=== PATIENT | female | born 1935 | race Caucasian/White ===

== ENCOUNTER → 2016-07-30 | Outpatient (CLI) | payer MEDICARE ==
[~2016-07-30] MED LIST: CYCL-36 PO; LEVO100T60 PO; LIPI10TA PO; LUTE6CAP7 PO; MEGA RED PO; OXYC1TAB92 PO; PRIN10TA PO; TAB-TAB PO; VITA400D PO
[2016-07-30 16:11] LABS: ALT (GPT) 26 U/L (10-53); ANION GAP 6 MEQ/L (5-15); AST (GOT) 14 U/L (15-37); BICARBONATE 26.6 MEQ/L (21.0-32.0); BLOOD UREA NITROGEN 19 MG/DL (7-18); CHLORIDE 107 MEQ/L (98-107); GLOMERULAR FILTRATION RATE 77 ML/MIN (>89); GLUCOSE,FASTING 80 MG/DL (74-99); SODIUM (NA) 140 MEQ/L (136-145)
[2016-07-30 16:12] LABS: AUTOMATED NEUTROPHIL # 4.2 TH/MM3 (1.8-7.7); BASOPHIL # 0.1 TH/MM3 (0-0.2); BASOPHIL % 1.4 % (0.0-2.0); EOSINOPHIL # 0.1 TH/MM3 (0-0.4); EOSINOPHIL % 2.2 % (0.0-4.0); HEMATOCRIT 37.9 % (35.0-46.0); HEMO FLAGS DIFF FINAL; LYMPH % 22.5 % (9.0-44.0); LYMPHOCYTE # 1.4 TH/MM3 (1.0-4.8); MEAN CELL VOLUME 93.9 FL (80.0-100.0); MEAN CORPUSCULAR HEMOGLOBIN 32.1 PG (27.0-34.0); MEAN CORPUSCULAR HGB CONC 34.2 % (32.0-36.0); MONO % 8.5 % (0.0-8.0); NEUT % 65.4 % (16.0-70.0); PLATELET COUNT 314 TH/MM3 (150-450); RED BLOOD COUNT 4.03 MIL/MM3 (4.00-5.30); RED CELL DISTRIBUTION WIDTH 12.9 % (11.6-17.2); WHITE BLOOD COUNT 6.4 TH/MM3 (4.0-11.0)
[2016-07-30 16:19] LABS: ALKALINE PHOSPHATASE 53 U/L (45-117); FREE T4 1.23 NG/DL (0.76-1.46); HDL CHOLESTEROL 56.3 MG/DL (40.0-60.0); LDL CHOLESTEROL 71 MG/DL (0-99); TOTAL BILIRUBIN ADULT 0.4 MG/DL (0.2-1.0)
[2016-07-30 16:20] LABS: BLOOD, URINE NEG (NEG); GLUCOSE,URINE NEG (NEG); KETONE, URINE NEG (NEG); MUCUS URINE FEW /lpf (OCC); NITRITE,URINE NEG (NEG); SQUAMOUS EPITHELIAL CELL URINE <1 /hpf (0-5); URINE COLOR YELLOW (YELLW/STRAW)
== END ==
LOC: PLAB 11:50
PROVIDERS: ATTEND Family Medicine Adolescent Medicine
DX: B02.29 Other postherpetic nervous system involvement (principal); E03.9 Hypothyroidism, unspecified; I12.9 Hypertensive chronic kidney disease with stage 1 through stage 4 chronic kidney disease, or unspecified chronic kidney disease; N18.2 Chronic kidney disease, stage 2 (mild); M12.9 Arthropathy, unspecified; M48.06 Spinal stenosis, lumbar region; M51.9 Unspecified thoracic, thoracolumbar and lumbosacral intervertebral disc disorder; M81.0 Age-related osteoporosis without current pathological fracture; R52 Pain, unspecified; E78.5 Hyperlipidemia, unspecified; G45.3 Amaurosis fugax; E03.1 Congenital hypothyroidism without goiter; G47.00 Insomnia, unspecified; Z79.899 Other long term (current) drug therapy
CPT/HCPCS: 36415; 80053; 80061; 81001; 82550; 84439; 84443; 85025

== ENCOUNTER 2017-03-17 15:11 | Emergency (ER) | payer OTHER, MEDICARE ==
[~2017-03-17] VITALS: Ht 160 cm; Wt 65.0 kg
[2017-03-17 15:20] VITALS: BP 147/65; PULSE 70; RESP 18; TEMP 99; O2SAT 97
[2017-03-17] MEDS ORDERED: LIDOCAINE HCL 1% 50 ML VIAL INFIL ONE (15:45)
[2017-03-17] MEDS ORDERED: MORPHINE SULFATE 4 MG/ML INJ IV PUSH ONE (15:45)
[2017-03-17] MEDS ORDERED: ONDANSETRON HCL 4 MG/2 ML VIAL IV PUSH ONE (15:45)
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
[2017-03-17 16:14] LABS: AUTOMATED NEUTROPHIL # 5.3 TH/MM3 (1.8-7.7); BASOPHIL # 0.1 TH/MM3 (0-0.2); EOSINOPHIL # 0.3 TH/MM3 (0-0.4); EOSINOPHIL % 3.3 % (0.0-4.0); HEMATOCRIT 38.6 % (35.0-46.0); HEMO FLAGS DIFF FINAL; LYMPH % 24.7 % (9.0-44.0); LYMPHOCYTE # 2.1 TH/MM3 (1.0-4.8); MEAN CELL VOLUME 92.3 FL (80.0-100.0); MEAN CORPUSCULAR HGB CONC 33.6 % (32.0-36.0); PLATELET COUNT 272 TH/MM3 (150-450); RED BLOOD COUNT 4.18 MIL/MM3 (4.00-5.30); RED CELL DISTRIBUTION WIDTH 12.9 % (11.6-17.2); WHITE BLOOD COUNT 8.3 TH/MM3 (4.0-11.0)
[2017-03-17 16:24] LABS: APTT (PATIENT) 20.8 SEC (24.3-30.1); PROTHROMBIN TIME - PATIENT 10.5 SEC (9.8-11.6)
[2017-03-17 16:31] LABS: BICARBONATE 22.4 MEQ/L (21.0-32.0); POTASSIUM 4.2 MEQ/L (3.5-5.1)
[2017-03-17] MEDS ORDERED: IOHEXOL 350 MG/ML 10 ML VIAL (for RAD DIAG) IVCONTRAST ONE (19:10)
[2017-03-17 19:14] VITALS: BP 170/75; PULSE 80; RESP 18; O2SAT 83
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
[2017-03-17] MEDS ORDERED: CEPH-460 PO (19:39)
[2017-03-17] MEDS ORDERED: TRAM50TA PO (19:39)
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
== END 2017-03-17 20:19 | disposition home or self-care (01) ==
LOC: NEPD 15:11
DX: S81.012A Laceration without foreign body, left knee, initial encounter (principal); M54.5 Low back pain; I10 Essential (primary) hypertension; V49.49XA Driver injured in collision with other motor vehicles in traffic accident, initial encounter; Y92.410 Unspecified street and highway as the place of occurrence of the external cause; Z72.0 Tobacco use
CPT/HCPCS: 12002; 71020; 72125; 72131; 73564; 74177; 80048; 85025; 85610; 85730; 96374; 96375; 99285; J2270; J2405; Q9967

== ENCOUNTER → 2017-05-11 | Outpatient (CLI) | payer MEDICARE ==
[~2017-05-11] MED LIST changes: +CEPH-460 PO; +TRAM50TA PO
[2017-05-11 13:10] LABS: BASOPHIL # 0.1 TH/MM3 (0-0.2); BLOOD, URINE NEG (NEG); EOSINOPHIL # 0.2 TH/MM3 (0-0.4); EOSINOPHIL % 2.5 % (0.0-4.0); GLUCOSE,URINE NEG (NEG); HEMATOCRIT 39.4 % (35.0-46.0); HEMO FLAGS DIFF FINAL; KETONE, URINE NEG (NEG); LYMPH % 21.6 % (9.0-44.0); LYMPHOCYTE # 1.6 TH/MM3 (1.0-4.8); MEAN CELL VOLUME 91.8 FL (80.0-100.0); MEAN CORPUSCULAR HEMOGLOBIN 31.7 PG (27.0-34.0); MEAN CORPUSCULAR HGB CONC 34.5 % (32.0-36.0); MONO % 8.4 % (0.0-8.0); NEUT % 66.5 % (16.0-70.0); NITRITE,URINE NEG (NEG); PH, URINE 7.5 (5.0-8.5); PLATELET COUNT 286 TH/MM3 (150-450); RED CELL DISTRIBUTION WIDTH 13.2 % (11.6-17.2); URINE COLOR YELLOW (YELLW/STRAW); WHITE BLOOD COUNT 7.4 TH/MM3 (4.0-11.0)
[2017-05-11 13:20] LABS: ANION GAP 5 MEQ/L (5-15); AST (GOT) 21 U/L (15-37); BICARBONATE 28.1 MEQ/L (21.0-32.0); BLOOD UREA NITROGEN 12 MG/DL (7-18); CHLORIDE 109 MEQ/L (98-107); GLOMERULAR FILTRATION RATE 81 ML/MIN (>89); GLUCOSE,FASTING 95 MG/DL (74-99); POTASSIUM 4.3 MEQ/L (3.5-5.1); SODIUM (NA) 142 MEQ/L (136-145)
[2017-05-11 13:24] LABS: ALKALINE PHOSPHATASE 73 U/L (45-117); ALT (GPT) 24 U/L (10-53); CREATINE KINASE 83 U/L (26-192); HDL CHOLESTEROL 74.3 MG/DL (40.0-60.0); LDL CHOLESTEROL 49 MG/DL (0-99); TOTAL BILIRUBIN ADULT 0.5 MG/DL (0.2-1.0)
[2017-05-11 13:29] LABS: FREE T4 0.87 NG/DL (0.76-1.46)
== END ==
LOC: PLAB 09:27
PROVIDERS: ATTEND Family Medicine Adolescent Medicine
DX: I49.1 Atrial premature depolarization (principal); B02.29 Other postherpetic nervous system involvement; G47.00 Insomnia, unspecified; M12.9 Arthropathy, unspecified; M51.9 Unspecified thoracic, thoracolumbar and lumbosacral intervertebral disc disorder; R52 Pain, unspecified; I65.29 Occlusion and stenosis of unspecified carotid artery; E78.5 Hyperlipidemia, unspecified; I10 Essential (primary) hypertension; E03.1 Congenital hypothyroidism without goiter; Z79.01 Long term (current) use of anticoagulants; Z79.1 Long term (current) use of non-steroidal anti-inflammatories (NSAID)
CPT/HCPCS: 36415; 80053; 80061; 81001; 82550; 84439; 84443; 85025

== ENCOUNTER → 2017-05-18 | Outpatient (CLI) | payer MEDICARE | LOC: PLAB 12:14 | PROVIDERS: ATTEND Family Medicine Adolescent Medicine | DX: E03.9 Hypothyroidism, unspecified (principal) ==

== ENCOUNTER 2017-10-03 12:00 | Inpatient (IN) | payer MEDICARE ==
[~2017-10-03] VITALS: Ht 157.5 cm; Wt 64.0 kg
[2017-10-03] VITALS (7 sets, daily range): BP systolic 124–161; BP diastolic 60–85; PULSE 73–96; RESP 17–20; TEMP 97.8–98.7; O2SAT 92–98
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
[2017-10-03] MEDS ORDERED: LISI-519 PO (12:54)
[2017-10-03] MEDS ORDERED: LIPI10TA PO (12:54)
[2017-10-03] MEDS ORDERED: LUTE20CA PO (12:54)
[2017-10-03] MEDS ORDERED: LEVO112T2 PO (12:54)
[2017-10-03] MEDS ORDERED: VITATAB56 PO (12:54)
[2017-10-03] MEDS ORDERED: OXYC-392 PO (12:54)
--- NOTE | 2017-10-03 12:56 | RADRPT ---
EXAM DATE/TIME: 10/03/2017 12:35 [facility] COMPARISON: CT ABDOMEN & PELVIS W CONTRAST, March 17, 2017, 18:53. HIP RIGHT (AP&LAT 2/3VWS) W AP PELVIS, Au 2015, 15:28. INDICATIONS : Right hip area pain after fall 1 hour ago. unable to straighten leg out fully MEDICAL HISTORY : None. SURGICAL HISTORY : None. ENCOUNTER: Initial ACUITY: 1 day PAIN SCORE: 10/10 LOCATION: Right hip area FINDINGS: There is a nondisplaced comminuted fracture involving the right femoral neck. The femoral head mainta ins normal contour and is seen within the right acetabulum. Osseous fragment identified adjacent to t he anterior-inferior iliac spine is stable in position from prior exam. Stable posterior fusion hardw are in the lower lumbar spine. The bones appear mildly osteopenic. CONCLUSION: Nondisplaced fracture of the right femoral neck.. Cori Stanley MD on October 03, 2017 at 12:52 Board Certified Radiologist. This report was verified electronically.
[2017-10-03] MEDS ORDERED: SODIUM CHLORIDE 0.9% FLUSH 10 ML FLUSH IVF PRN (13:45)
[2017-10-03] MEDS ORDERED: LACTULOSE SYRUP 20 GM/30 ML CUP PO PRN (14:15)
[2017-10-03] MEDS ORDERED: BISACODYL 10 MG SUPP RECTAL PRN (14:15)
[2017-10-03] MEDS ORDERED: SODIUM CHLORIDE 0.9% FLUSH 10 ML FLUSH IV FLUSH PRN (14:15)
[2017-10-03] MEDS ORDERED: MAGNESIUM HYDROXIDE SUSP 30 ML CUP PO PRN (14:15)
[2017-10-03] MEDS ORDERED: SENNOSIDES 8.6 MG TAB PO PRN (14:15)
[2017-10-03] MEDS ORDERED: NALOXONE HCL 0.4 MG/ML AMP IV PUSH PRN (14:15)
[2017-10-03 14:39] LABS: AUTOMATED NEUTROPHIL # 8.4 TH/MM3 (1.8-7.7); BASOPHIL # 0.1 TH/MM3 (0-0.2); BASOPHIL % 1.1 % (0.0-2.0); EOSINOPHIL # 0.2 TH/MM3 (0-0.4); EOSINOPHIL % 1.9 % (0.0-4.0); HEMATOCRIT 39.8 % (35.0-46.0); HEMOGLOBIN 13.5 GM/DL (11.6-15.3); LYMPHOCYTE # 1.5 TH/MM3 (1.0-4.8); MEAN CORPUSCULAR HEMOGLOBIN 30.9 PG (27.0-34.0); MEAN CORPUSCULAR HGB CONC 33.9 % (32.0-36.0); MEAN PLATELET VOLUME 7.7 FL (7.0-11.0); MONO % 4.7 % (0.0-8.0); MONOCYTE # 0.5 TH/MM3 (0-0.9); NEUT % 78.3 % (16.0-70.0); PLATELET COUNT 261 TH/MM3 (150-450); RED BLOOD COUNT 4.38 MIL/MM3 (4.00-5.30); RED CELL DISTRIBUTION WIDTH 12.8 % (11.6-17.2); WHITE BLOOD COUNT 10.7 TH/MM3 (4.0-11.0)
[2017-10-03 14:47] LABS: CHLORIDE 108 MEQ/L (98-107); SODIUM (NA) 139 MEQ/L (136-145)
[2017-10-03 14:50] LABS: CALCIUM 8.7 MG/DL (8.5-10.1)
[2017-10-03 14:51] LABS: ALBUMIN 3.4 GM/DL (3.4-5.0); BICARBONATE 22.9 MEQ/L (21.0-32.0); BLOOD UREA NITROGEN 22 MG/DL (7-18); GLUCOSE,RANDOM 88 MG/DL (74-106); MAGNESIUM 2.4 MG/DL (1.5-2.5)
[2017-10-03 14:52] LABS: PROTHROMBIN TIME - PATIENT 10.1 SEC (9.8-11.6)
[2017-10-03 14:54] LABS: ALT (GPT) 31 U/L (10-53); AST (GOT) 23 U/L (15-37); CREATININE 0.75 MG/DL (0.50-1.00); GLOMERULAR FILTRATION RATE 74 ML/MIN (>89)
[2017-10-03 14:56] LABS: TOTAL BILIRUBIN ADULT 0.3 MG/DL (0.2-1.0); TOTAL PROTEIN 6.4 GM/DL (6.4-8.2)
[2017-10-03 14:57] LABS: ALKALINE PHOSPHATASE 68 U/L (45-117)
--- NOTE | 2017-10-03 15:33 | RADRPT ---
EXAM DATE/TIME: 10/03/2017 14:32 [facility] COMPARISON: No previous studies available for comparison. INDICATIONS : Fall today, right hip fracture MEDICAL HISTORY : None. SURGICAL HISTORY : None. ENCOUNTER: Initial ACUITY: 1 day PAIN SCORE: 0/10 LOCATION: Bilateral chest FINDINGS: A single view of the chest demonstrates cardiomegaly. Mild basilar atelectasis. Mildly tortuous aorta . No pneumothorax. Previous fixation lumbar spine. CONCLUSION: 1. Minimal basilar atelectasis. Julian Salguero MD on October 03, 2017 at 15:30 Board Certified Radiologist. This report was verified electronically.
[2017-10-03] MEDS: SODIUM CHLOR 0.9% 1000 ML INJ 1,000 ML IV SCH (15:56)
[2017-10-03] MEDS ORDERED: oxyCODONE/ACETAMINOPHEN 5 MG/325 MG TAB PO ONE (17:30)
[2017-10-03] MEDS ORDERED: CHLORHEXIDINE GLUCONATE 2 % 1 PACK (2 CLOTHS) TOPICAL PRN (21:00)
[2017-10-03] MEDS ORDERED: MORPHINE SULFATE 2 MG/ML SYRINGE IM PRN (21:00)
[2017-10-03] MEDS ORDERED: POVIDONE IODINE 5% (ANTISEPSIS KIT) 4 APPLICATIONS EACH NARE PRN (21:00)
[2017-10-03] MEDS ORDERED: LACTATED RINGER'S 1000 ML IV PRN (21:00)
[2017-10-03] MEDS: SODIUM CHLORIDE 0.9% FLUSH 10 ML FLUSH IV FLUSH SCH (21:00)
[2017-10-03] MEDS ORDERED: SODIUM CHLORID 0.9% 500 ML IV PRN (21:00)
[2017-10-03] MEDS: ATORVASTATIN 10 MG TAB PO SCH (21:08)
[2017-10-03] MEDS: DOCUSATE SODIUM 50 MG/SENNA 8.6 MG TAB PO SCH (21:08)
--- NOTE | 2017-10-03 21:08 | HHI.HP ---
[facility] Vanessa Pérez D.O. Admission Diagnosis Right Hip Fracture. Diagnoses: (1) Hip fracture, right Chief Complaint: Left hip and groin pain following fall Travel History International Travel<30 Days: No Contact w/Intl Traveler <30 Da: No Traveled to Known Affected Are: No History of Present Illness Ms. Corbett is an 82 y/o female with a history of CVA, hypertension, arthritis , and hypothyroidism who presented to the emergency room in [place] on 2017 after a trip and fall [facility] [employer] resulting in severe right hip and right groin pain. Right hip x-ray revealed nondisplaced fracture of right femoral neck and patient was transferred to [facility] for surgical repair. The patient is seen in her hospital room. She reports 7 out of 10 pain in her right hip following a mechanical fall at [employer]. She states that after the fall , she was unable to get back up. She denied hitting her head or having any chest pain or shortness of breath prior to the fall. She states she tripped on the carpet at the [employer]. She reports inadequate pain relief with current pain medication regimen. She denies any recent fever, chills, or illness. Review of Systems Except as stated in HPI: all other systems reviewed are Neg Past Family Social History Past Medical History Hypothyroidism Hypertension - controlled by medication Arthritis Basal cell skin cancer Chronic lumbar back pain L4-L5 DDD with herniated disc Denies diabetes, coronary artery disease, irregular heart rhythm, COPD or emphysema, liver disease, kidney disease, DVT, PE, CVA, seizures, or cancer. . Past Surgical History Thyroid biopsy Hysterectomy Basal cell skin cancer removal from the left inner eye - Dr. Aranda Lumbar surgery with kell placement . Reported Medications Reported Meds & Active Scripts Active Reported Oxycodone (Oxycodone HCl) 5 Mg Tab 5 Mg PO Q6HR Lisinopril 5 Mg Tab 5 Mg PO DAILY Levothyroxine (Levothyroxine Sodium) 112 Mcg Tab 112 Mcg PO DAILY Lutein 20 Mg Cap 20 Mg PO DAILY Vitamin D-400 (Cholecalciferol) 400 Unit Tab 400 Units PO DAILY Lipitor (Atorvastatin Calcium) 10 Mg Tab 10 Mg PO HS . Allergies: Coded Allergies: ipratropium (Unverified Allergy, Severe, 10/03/17) DIZZINESS,BLURRED VISION, NAUSEA, VOMITTING Family History Significant for heart disease and diabetes Sister with breast cancer . 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 Physical Exam Vital Signs Vital Signs Date Time Temp Pulse Resp B/P (MAP) Pulse Ox O2 Delivery O2 Flow Rate FiO2 10/03/17 19:43 93 18 150/80 (103) 94 10/03/17 19:00 18 10/03/17 19:00 94 18 144/81 (102) 97 Room Air 10/03/17 15:11 73 20 161/63 (95) 97 Room Air 10/03/17 15:10 97 Room Air 10/03/17 15:10 97 10/03/17 12:08 98.6 80 18 124/60 (81) Physical Exam CONSTITUTIONAL: This is a well-nourished elderly female patient, in no apparent distress. INTEGUMENTARY: No rashes, ecchymoses or lesions. Cool and dry. HEAD: Atraumatic. Normocephalic. EYES: No scleral icterus. No injection or drainage. ENT: Nose without bleeding, purulent drainage. NECK: Trachea midline. No JVD or lymphadenopathy. CARDIOVASCULAR: Regular rate and rhythm without murmurs, gallops, or rubs. RESPIRATORY: Clear to auscultation. Breath sounds equal bilaterally. No wheezes , rales, or rhonchi. GASTROINTESTINAL: Abdomen soft, non-tender, nondistended. No guarding. MUSCULOSKELETAL: Extremities without clubbing, cyanosis. No calf tenderness. Right hip pain with movement. NEUROLOGICAL: Awake and alert. Motor and sensory grossly within normal limits. Normal speech. . Laboratory Laboratory Tests Test 10/03/17 14:30 White Blood Count 10.7 Red Blood Count 4.38 Hemoglobin 13.5 Hematocrit 39.8 Mean Corpuscular Volume 91.0 Mean Corpuscular Hemoglobin 30.9 Mean Corpuscular Hemoglobin Concent 33.9 Red Cell Distribution Width 12.8 Platelet Count 261 Mean Platelet Volume 7.7 Neutrophils (%) (Auto) 78.3 Lymphocytes (%) (Auto) 14.0 Monocytes (%) (Auto) 4.7 Eosinophils (%) (Auto) 1.9 Basophils (%) (Auto) 1.1 Neutrophils # (Auto) 8.4 Lymphocytes # (Auto) 1.5 Monocytes # (Auto) 0.5 Eosinophils # (Auto) 0.2 Basophils # (Auto) 0.1 CBC Comment DIFF FINAL Differential Comment Prothrombin Time 10.1 Prothromb Time International Ratio 1.0 Activated Partial Thromboplast Time 22.6 Blood Urea Nitrogen 22 Creatinine 0.75 Random Glucose 88 Total Protein 6.4 Albumin 3.4 Calcium Level 8.7 Magnesium Level 2.4 Alkaline Phosphatase 68 Aspartate Amino Transf (AST/SGOT) 23 Alanine Aminotransferase (ALT/SGPT) 31 Total Bilirubin 0.3 Sodium Level 139 Potassium Level 3.9 Chloride Level 108 Carbon Dioxide Level 22.9 Anion Gap 8 Estimat Glomerular Filtration Rate 74 Result Diagram: 10/03/17 1430 10/03/17 1430 Imaging Last Impressions Chest X-Ray 10/03/17 1332 Signed Impressions: Service Date/Time: Tuesday, October 03, 2017 14:32 - CONCLUSION: 1. Minimal basilar atelectasis. Julian Salguero MD Hip and Pelvis X-Ray 10/03/17 0000 Signed Impressions: Service Date/Time: Tuesday, October 03, 2017 12:35 - CONCLUSION: Nondisplaced fracture of the right femoral neck.. Cori Stanley MD . Caprini VTE Risk Assessment Caprini VTE Risk Assessment: Mod/High Risk (score >= 2) Caprini Risk Assessment Model Point Value = 1 Point Value = 2 Point Value = 3 Point Value = 5 Age 41-60 Minor surgery BMI > 25 kg/m2 Swollen legs Varicose veins or History of unexplained or recurrent spontaneous Oral contraceptives or hormone replacement Sepsis (< 1 month) Serious lung disease, including pneumonia (< 1 month) Abnormal pulmonary function Acute myocardial infarction Congestive heart failure (< 1 month) History of inflammatory bowel disease Medical patient at bed rest Age 61-74 Arthroscopic surgery Major open surgery (> 45 min) Laparoscopic surgery (> 45 min) Malignancy Confined to bed (> 72 hours) Immobilizing plaster cast Central venous access Age >= 75 History of VTE Family history of VTE Factor V Leiden Prothrombin [id number] Lupus anticoagulant Anticardiolipin antibodies Elevated serum homocysteine Heparin-induced thrombocytopenia Other congenital or acquired thrombophilia Stroke (< 1 month) Elective arthroplasty Hip, pelvis, or leg fracture Acute spinal cord injury (< 1 month) Prophylaxis Regimen Total Risk Factor Score Risk Level Prophylaxis Regimen 0-1 Low Early ambulation 2 Moderate Order ONE of the following: *Sequential Compression Device (SCD) *Heparin 5000 units SQ BID 3-4 Higher Order ONE of the following medications: *Heparin 5000 units SQ TID *Enoxaparin/Lovenox 40 mg SQ daily (WT < 150 kg, CrCl > 30 mL/min) *Enoxaparin/Lovenox 30 mg SQ daily (WT < 150 kg, CrCl > 10-29 mL/min) *Enoxaparin/Lovenox 30 mg SQ BID (WT < 150 kg, CrCl > 30 mL/min) AND/OR *Sequential Compression Device (SCD) 5 or more Highest Order ONE of the following medications: *Heparin 5000 units SQ TID (Preferred with Epidurals) *Enoxaparin/Lovenox 40 mg SQ daily (WT < 150 kg, CrCl > 30 mL/min) *Enoxaparin/Lovenox 30 mg SQ daily (WT < 150 kg, CrCl > 10-29 mL/min) *Enoxaparin/Lovenox 30 mg SQ BID (WT < 150 kg, CrCl > 30 mL/min) AND *Sequential Compression Device (SCD) Assessment and Plan Problem List: (1) Hypertension ICD Code: I10 - Essential (primary) hypertension Status: Chronic (2) Hypothyroidism ICD Code: E03.9 - Hypothyroidism, unspecified Status: Chronic (3) Hip fracture, right ICD Code: S72.001A - Fracture of unspecified part of neck of right femur, initial encounter for closed fracture Assessment and Plan Ms. Corbett is an 82 y/o female with a history of CVA, hypertension, arthritis , and hypothyroidism who presented to the emergency room in [place] on 2017 after a trip and fall at [employer] resulting in severe right hip and right groin pain. Right hip x-ray revealed nondisplaced fracture of right femoral neck and patient was transferred to [facility] for surgical repair. Right hip fracture -Right hip x-ray revealed nondisplaced fracture of right femoral neck -Case was discussed between ER physician and Dr. Carrillo, orthopedic surgeon, and he will consult on the case - appreciate his assistance -NPO after midnight -Oxycodone 5-10 mg p.o. every 4 hours as needed pain with IV morphine for breakthrough pain Hypertension -Some elevations noted with systolic from 140s-160s -likely secondary to pain -Maintain pain control with analgesia as described above -Resume home lisinopril -Monitor trends in blood pressure readings and adjust treatments as indicated Hypothyroidism -Continue home Synthroid DVT prophylaxis -SCDs/TEDs Discussed Condition With Dr. Goodman . Physician Certification 2 Midnight Certification Type: Admission for Inpatient Services Order for Inpatient Services The services are ordered in accordance with Medicare regulations or non- Medicare payer requirements, as applicable. In the case of services not specified as inpatient-only, they are appropriately provided as inpatient services in accordance with the 2-midnight benchmark. Estimated LOS (days): 3 days is the estimated time the patient will need to remain in the hospital, assuming treatment plan goals are met and no additional complications. Post-Hospital Plan: Not yet determined Pam Camacho Oct 03, 2017 21:08
[2017-10-04] MEDS: SODIUM CHLOR 0.9% 1000 ML INJ 1,000 ML IV SCH ×2 (01:05→16:46)
[2017-10-04] MEDS ORDERED: MORPHINE SULFATE 2 MG/ML SYRINGE IV PUSH PRN (03:00)
[2017-10-04 04:50] VITALS: BP 119/62; PULSE 84; RESP 18; TEMP 98.1; O2SAT 92
[2017-10-04] MEDS: LEVOTHYROXINE SODIUM 112 MCG TAB PO SCH (05:53)
--- NOTE | 2017-10-04 06:37 | PD.ORT.PN ---
Subjective Subjective Remarks Previous spinal surgery approximately 2 years ago. She has been working hard on her gait training. She was at [employer] when she fell yesterday. She had immediate pain to her right hip and was unable to ambulate. Objective Vitals Vital Signs Date Time Temp Pulse Resp B/P (MAP) Pulse Ox O2 Delivery O2 Flow Rate FiO2 10/04/17 04:50 98.1 84 18 119/62 (81) 92 10/03/17 23:19 98.7 94 18 129/61 (83) 92 10/03/17 21:02 97.8 96 18 140/85 (103) 95 10/03/17 19:43 93 18 150/80 (103) 94 10/03/17 19:00 18 10/03/17 19:00 94 18 144/81 (102) 97 Room Air 10/03/17 15:11 73 20 161/63 (95) 97 Room Air 10/03/17 15:10 97 Room Air 10/03/17 15:10 97 10/03/17 12:08 98.6 80 18 124/60 (81) I/O 10/03/17 10/03/17 10/03/17 10/04/17 10/04/17 10/04/17 07:00 15:00 23:00 07:00 15:00 23:00 Intake Total 360 ml Balance 360 ml Intake Oral 360 ml # Voids 3 # Bowel Movements 0 Result Diagram: 10/03/17 1430 10/03/17 1430 Other Results Laboratory Tests Test 10/03/17 14:30 Prothromb Time International Ratio 1.0 RATIO Prothrombin Time 10.1 SEC (9.8-11.6) Imaging Last 24 hours Impressions Chest X-Ray 10/03/17 1332 Signed Impressions: Service Date/Time: Tuesday, October 03, 2017 14:32 - CONCLUSION: 1. Minimal basilar atelectasis. Julian Salguero MD Objective Remarks Bilateral upper extremities: Full range of motion neurovascularly intact Left lower extremity: Full range of motion and neurovascularly intact Right lower extremity: Pain to palpation of hip. Mild tenderness with range of motion of hip. No pain with palpation or movement of knee or ankle. Distally intact sensation with good capillary refills. Active dorsiflexion plantar flexion foot Assessment & Plan Assessment and Plan Right valgus impacted femoral neck fracture Nothing by mouth Surgery this morning for planned percutaneous screw fixation of the right femoral neck fracture. If the fractures displaced surgery may be necessary to be converted to a right hip hemiarthroplasty. Sign consents Alfie Mayes Jr. Oct 04, 2017 06:36
[2017-10-04] MEDS ORDERED: ceFAZolin INJ 1,000 MG VIAL ONE (06:53)
[2017-10-04] MEDS ORDERED: VANCOMYCIN HCL 1000 MG VIAL ONE (06:53)
[2017-10-04] MEDS ORDERED: BUPIVACAINE/EPINEPHRINE 0.25% 50 ML VIAL ONE (06:54)
[2017-10-04] MEDS ORDERED: GENTAMICIN SULFATE 80 MG/2 ML VIAL ONE (06:54)
[2017-10-04] MEDS ORDERED: SODIUM CHLOR 0.9% 250 ML INJ 250 ML ONE (06:54)
[2017-10-04] MEDS ORDERED: SUGAMMADEX SODIUM 200 MG/2 ML VIAL IV PUSH ONE (08:05)
--- NOTE | 2017-10-04 08:10 | PD.OP ---
cc: Carlyle Fernandez MD Operative Report Date of Surgery: Oct 04, 2017 Preoperative Diagnosis: Impacted right femoral neck fracture Postoperative Diagnosis: Procedure: Right hip pinning Anesthesia: General Surgeon: Carlyle Fernandez [employer] Decorator(s): ALFRED Castaneda PA-C Operation and Findings: Implants used: ITS Plan of activity: TTWB Patient was seen and evaluated preoperatively. The patient has significant hip pain from impacted femoral neck fracture. The risk and benefits of surgery were discussed in depth with the patient to include bleeding infection nonunion malunion, avascular necrosis and need for hip replacement painful hardware as well as medical competitions including but not stroke heart attack and . Informed consent was obtained. Operative site was marked. Patient was brought to the operating room and placed on fracture table. IV sedation was administered by anesthesiologist. Timeout procedure was performed. Hip and leg were prepped with alcohol followed by Hibiclens and draped in the usual sterile fashion. IV antibiotics were given prior to incision. Procedure began with evaluation of fracture under fluoroscopy. The fracture was impacted and an excellent alignment. A three cm incision was along the lateral aspect of the proximal femur . Subcutaneous tissue was dissected bluntly. Three guidepins were placed through the lateral cortex of the proximal femur. Guide pins were placed in an inverted triangle position. Guide pins were advanced across the fracture site into the femoral head. Fluoroscopy confirmed appropriate guidepin placement. The screw lengths were measured. A cannulated drill was placed over each of the guide pins. Appropriate length ITS cannulated screws were placed over the guidepins. Good compression was applied across the fracture. Final fluoroscopy revealed well aligned fracture with well-placed hardware. Incision was closed with 3-0 Vicryl and artemio. Sterile dressings were applied. Patient was awakened and transferred to recovery room. Carlyle Fernandez MD Oct 04, 2017 08:10
[2017-10-04] MEDS ORDERED: ERGOCALCIFEROL (VIT D2) 50,000 UNIT CAP PO ONE (08:15)
[2017-10-04] MEDS ORDERED: Post-op Orders (for Pharmacy) XX ONE (08:15)
[2017-10-04] MEDS ORDERED: DO NOT ADM ANY ANTICOAGULANT DRUGS PRN (08:17)
[2017-10-04] MEDS ORDERED: *morphine SULFATE 4 MG/ML PERIprocedure ONLY ONE ×4 (08:20→08:57)
--- NOTE | 2017-10-04 08:37 | MB ---
cc: Carlyle Gonsalez MD DATE: 10/04/2017 REASON FOR CONSULTATION: Right femoral neck fracture CONSULTING PHYSICIAN: Dr. Ariana Hobbs. HISTORY OF PRESENT ILLNESS: Janet is an 82-year-old female who had a fall. She was at [employer]. She states that her shoe caught on the carpet causing her to fall. She describes a mechanical fall. She denies any dizziness, syncope or loss of consciousness. She presented to the Emergency Room where x-rays revealed a right hip fracture. She is currently awake and alert. Her only complaint is her right hip. Pain is worse with movement and is improved with rest. PAST MEDICAL HISTORY: Illnesses: Hypothyroidism, hypertension, arthritis, basal cell skin cancer, chronic back pain and degenerative disc disease. PAST SURGICAL HISTORY: Include a thyroid biopsy, hysterectomy, skin cancer excision and lumbar fusion. MEDICATIONS: Include: Oxycodone, lisinopril, levothyroxine, vitamin D and Lipitor. ALLERGIES: IPRATROPIUM. FAMILY HISTORY: Positive for heart disease and diabetes. She has a sister with breast cancer. SOCIAL HISTORY: The patient smokes 1/3 pack a day. She drinks alcohol occasionally. She denies drug use. 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 REVIEW OF SYSTEMS: The patient denies headache, visual changes, neck pain, chest pain, shortness of breath, abdominal pain, nausea, vomiting, recent weight loss, fever, chills, numbness or tingling of the extremities. She complains of right hip pain. The pain is worse with movement. LABORATORY DATA: White blood cell count is 10.7, hematocrit is 39.8, platelet count is 261. INR is 1.0. BUN is 22, creatinine 0.75. IMAGING: X-rays of the right hip were reviewed. X-rays reveal an impacted right femoral neck fracture. PHYSICAL EXAMINATION: GENERAL: The patient is a well-developed, well-nourished, 82-year-old female. She is awake and alert. She is alert and oriented x 3. She is in no acute distress. VITAL SIGNS: Temperature 98.1, pulse 84, respirations 18, blood pressure is 119/62, O2 saturation 90% on room air. HEAD: The patient is normocephalic. EYES: Pupils are equal. NECK: Soft and nontender. The trachea is in the midline. ABDOMEN: Soft, nontender, nondistended. EXTREMITIES: Examination of bilateral upper extremities reveals no pain with shoulder, elbow or wrist motion. She has intact sensation in all fingers. She has good cap refill at fingers. Skin is intact. Radial pulses are palpable. Examination of the left leg reveals no pain with hip, knee or ankle motion. Skin is intact. Dorsalis pedis pulses palpable. Sensation is intact. Examination of the right leg revealed pain with any hip motion. She is tender to palpation around the proximal femur. She has no tenderness around her knee, tibia or ankle. Skin is intact. Dorsalis pedis pulses palpable. Calf and thigh compartments are soft. Dorsalis pedis pulses palpable. IMPRESSION: 1. Hypertension. 2. Hypothyroidism. 3. Degenerative disk disease of the lumbar spine. 4. Impacted right femoral neck fracture. PLAN: The treatment options were discussed with the patient. I discussed possible hip pinning versus possible hemiarthroplasty. At this point, the fracture appears to be stable and impacted. I will plan on right hip pinning. If fracture has displaced by the time of surgery, then I would recommend right hip hemiarthroplasty. Risks of surgery include bleeding, infection, injuries to arteries, nerves and blood vessels, nonunion, malunion, painful hardware, avascular necrosis, need for hip replacement as well as medical complications associated with anesthesia. All questions were answered. I will plan on surgery today. A mid-level provider in my office, nurse practitioner or PA, may see this patient on a follow-up basis and continue to implement the objective of this plan including: Starting or adjusting medications, injections of muscle, tendon, bursa or joints, cast application, orthotic or brace application, physical therapy, further radiographic studies including x-ray, MRI, CT, ultrasounds or bone scan, vascular studies, neurologic studies, or other specialist consultations, and proceeding with surgical management as appropriate. MD FELTON Rose/SOILA , 08:18 AM , 08:36 AM
[2017-10-04] MEDS ORDERED: ACETAMINOPHEN 1000 MG/100 ML 100 ML IV ONE ×2 (08:44→09:00)
[2017-10-04] MEDS ORDERED: XARE10TA PO (08:45)
[2017-10-04] MEDS ORDERED: OXYC-395 PO (08:45)
[2017-10-04] MEDS ORDERED: CALCTAB19 PO (08:45)
[2017-10-04] MEDS ORDERED: VITA500012 PO (08:45)
[2017-10-04] MEDS ORDERED: WALKER/ADULT/FO1 MIS (08:45)
[2017-10-04] MEDS: SODIUM CHLORIDE 0.9% FLUSH 10 ML FLUSH IV FLUSH SCH ×2 (09:00→20:39)
[2017-10-04] MEDS: LISINOPRIL 5 MG TAB PO SCH (09:00)
--- NOTE | 2017-10-04 09:29 | RADRPT ---
EXAM DATE/TIME: 10/04/2017 07:59 [facility] COMPARISON: No previous studies available for comparison. INDICATIONS : ORIF right hip fracture. MEDICAL HISTORY : Unobtainable. SURGICAL HISTORY : Unobtainable. ENCOUNTER: Subsequent ACUITY: 2 days PAIN SCORE: Non-responsive. LOCATION: Right hip. FINDINGS: Multiple screws are noted within the right proximal femur status post ORIF. There is adequate alignme nt noted. CONCLUSION: Status post ORIF of right proximal femur fracture with adequate alignment. Juan Castillo MD on October 04, 2017 at 9:26 Board Certified Radiologist. This report was verified electronically.
[2017-10-04 10:30] VITALS: BP 107/55; PULSE 72; RESP 16; TEMP 97.8; O2SAT 98
[2017-10-04] MEDS: DOCUSATE SODIUM 50 MG/SENNA 8.6 MG TAB PO SCH ×2 (10:49→20:38)
[2017-10-04] MEDS: CHOLECALCIFEROL (VIT D3) 5000 UNIT CAP PO SCH (10:49)
[2017-10-04 12:00] VITALS: BP 112/55; PULSE 75; RESP 17; TEMP 97.7; O2SAT 95
[2017-10-04] MEDS ORDERED: DEXAMETHASONE SOD PHOS 4 MG/ML VIAL IV ONE (12:00)
[2017-10-04] MEDS ORDERED: PROPOFOL 200 MG/20 ML AMP IV ONE (12:00)
[2017-10-04] MEDS ORDERED: LIDOCAINE HCL 1% PF 5 ML SYRINGE OTHER ONE (12:00)
[2017-10-04] MEDS ORDERED: PHENYLEPH/NS 1000 MCG/10 ML SYR IV ONE (12:00)
[2017-10-04] MEDS ORDERED: ONDANSETRON HCL 4 MG/2 ML VIAL IV ONE (12:00)
[2017-10-04] MEDS ORDERED: ROCURONIUM INJ 50 MG/5 ML SYRINGE IV PUSH ONE (12:00)
--- NOTE | 2017-10-04 12:21 | HHI.PR ---
Subjective Remarks Pt seen and examined. AFVSS. Saturating 93-94% on 3L. S/P R hip pinning earlier today. Pt reports soreness but overall pain is well-controlled. Denies N/V, abdominal pain, CP, SOB. Tolerated lunch. Passing flatus. Objective Vital Signs Date Time Temp Pulse Resp B/P (MAP) Pulse Ox O2 Delivery O2 Flow Rate FiO2 10/04/17 09:15 98.0 83 22 123/57 (79) 94 Nasal Cannula 3 10/04/17 09:00 86 22 129/59 (82) 93 Nasal Cannula 3 10/04/17 08:45 93 22 143/65 (91) 93 Nasal Cannula 3 10/04/17 08:30 92 22 135/64 (87) 94 Nasal Cannula 3 10/04/17 08:19 98.2 94 22 144/67 (92) 93 Nasal Cannula 3 10/04/17 04:50 98.1 84 18 119/62 (81) 92 10/03/17 23:19 98.7 94 18 129/61 (83) 92 10/03/17 21:02 97.8 96 18 140/85 (103) 95 10/03/17 19:43 93 18 150/80 (103) 94 10/03/17 19:00 18 10/03/17 19:00 94 18 144/81 (102) 97 Room Air 10/03/17 15:11 73 20 161/63 (95) 97 Room Air 10/03/17 15:10 97 Room Air 10/03/17 15:10 97 I/O 10/03/17 10/03/17 10/03/17 10/04/17 10/04/17 10/04/17 07:00 15:00 23:00 07:00 15:00 23:00 Intake Total 360 ml 580 ml Output Total 20 ml Balance 360 ml 560 ml Intake Oral 360 ml 30 ml IV Total 100 ml Other 450 ml Output Estimated Blood Loss 20 ml # Voids 3 0 # Bowel Movements 0 Result Diagram: 10/03/17 1430 10/03/17 1430 Imaging Hip X-Ray 10/04/17 0000 Signed Impressions: Service Date/Time: Wednesday, October 04, 2017 07:59 - CONCLUSION: Status post ORIF of right proximal femur fracture with adequate alignment. Juan Castillo MD Chest X-Ray 10/03/17 1332 Signed Impressions: Service Date/Time: Tuesday, October 03, 2017 14:32 - CONCLUSION: 1. Minimal basilar atelectasis. Julian Salguero MD Hip and Pelvis X-Ray 10/03/17 0000 Signed Impressions: Service Date/Time: Tuesday, October 03, 2017 12:35 - CONCLUSION: Nondisplaced fracture of the right femoral neck.. Cori Stanley MD Procedures Right hip pinning for impacted right femoral neck fracture on 10/04 Objective Remarks GENERAL: WN, WD elderly female laying comfortably in bed in NAD. SKIN: Warm and dry. HEENT: Pupils equal and round. MMM. NECK: Supple no tender LAD or JVD. HEART: RRR no m/r/g. LUNGS: CTAB without wheezes or crackles. ABDOMEN: Soft, NT, ND. EXTREMITIES: Dressing over R hip. Neurovascular intact. NEURO: Awake and alert. PSYCH: Appropriate mood and affect. A/P Problem List: (1) Hip fracture, right ICD Code: S72.001A - Fracture of unspecified part of neck of right femur, initial encounter for closed fracture (2) Hypothyroidism ICD Code: E03.9 - Hypothyroidism, unspecified Status: Chronic (3) Hypertension ICD Code: I10 - Essential (primary) hypertension Status: Chronic Assessment and Plan 82 YOWF with history of hypothyroidism and HTN admitted on 10/03 for R hip fracture after a mechanical fall [facility] [employer]. 1. R hip fracture - Ortho consulted - S/P R pinning POD#0 - Pain control - PT - Case management for SNF Chronic medical problems not being acutely addressed: - HTN: Continue home Lisinopril - Hypothyroidism: Continue home Levothyroxine - HLD: Continue home statin DVT prophylaxis: Lovenox per ortho Discharge Planning D/C to SNF once cleared by ortho, will need three midnight stay Problem Qualifiers (1) Hip fracture, right: Qualified Codes: S72.001A - Fracture of unspecified part of neck of right femur , initial encounter for closed fracture Caroline Curiel MD Oct 04, 2017 12:21
--- NOTE | 2017-10-04 15:24 | EKG ---
Date Performed: 10/03/2017 Time Performed: 13:42:47 PTAGE: 82 years EKG: Sinus rhythm Since the previous tracing, no significant change noted NORMAL ECG PREVIOUS TRACING : 02/04/2009 20.21 DOCTOR: Abena Lezama Interpretating Date/Time 10/04/2017 15:15:47
[2017-10-04 16:00] VITALS: BP 125/64; PULSE 75; RESP 18; TEMP 97.8; O2SAT 96
[2017-10-04 17:39] LABS: BICARBONATE 25.9 MEQ/L (21.0-32.0); CALCIUM 7.9 MG/DL (8.5-10.1); CREATININE 0.68 MG/DL (0.50-1.00)
[2017-10-04 17:46] LABS: AUTOMATED NEUTROPHIL # 8.8 TH/MM3 (1.8-7.7); BASOPHIL % 0.2 % (0.0-2.0); EOSINOPHIL % 0.1 % (0.0-4.0); HEMATOCRIT 37.1 % (35.0-46.0); HEMOGLOBIN 12.6 GM/DL (11.6-15.3); LYMPH % 4.6 % (9.0-44.0); LYMPHOCYTE # 0.4 TH/MM3 (1.0-4.8); MEAN CELL VOLUME 91.6 FL (80.0-100.0); MEAN CORPUSCULAR HEMOGLOBIN 31.2 PG (27.0-34.0); MEAN CORPUSCULAR HGB CONC 34.1 % (32.0-36.0); MEAN PLATELET VOLUME 8.2 FL (7.0-11.0); MONO % 1.7 % (0.0-8.0); MONOCYTE # 0.2 TH/MM3 (0-0.9); NEUT % 93.4 % (16.0-70.0); PLATELET COUNT 229 TH/MM3 (150-450); RED BLOOD COUNT 4.05 MIL/MM3 (4.00-5.30); RED CELL DISTRIBUTION WIDTH 13.2 % (11.6-17.2); WHITE BLOOD COUNT 9.4 TH/MM3 (4.0-11.0)
[2017-10-04 19:45] LABS: BANDS 2 % (0-6); LYMPHOCYTES 2 % (9-44); NEUTROPHIL # MANUAL DIFF 9.2 TH/MM3 (1.8-7.7); POLYS (SEG NEUTROPHILS) 96 % (16-70)
[2017-10-04 20:00] VITALS: BP 123/64; PULSE 91; RESP 18; TEMP 98.3; O2SAT 93
[2017-10-04] MEDS ORDERED: ENOXAPARIN SODIUM 30 MG/0.3 ML SYRINGE SQ SCH (20:00)
[2017-10-04] MEDS: ATORVASTATIN 10 MG TAB PO SCH (20:38)
[2017-10-05] VITALS: BP 142/68; PULSE 97; RESP 19; TEMP 98.4; O2SAT 95
[2017-10-05] MEDS ORDERED: TIMO0.5S30 EACH EYE (01:33)
[2017-10-05 04:00] VITALS: BP 135/66; PULSE 74; RESP 19; TEMP 98.8; O2SAT 93
[2017-10-05] MEDS: LEVOTHYROXINE SODIUM 112 MCG TAB PO SCH (05:39)
[2017-10-05] MEDS: SODIUM CHLOR 0.9% 1000 ML INJ 1,000 ML IV SCH (06:06)
--- NOTE | 2017-10-05 06:30 | PD.ORT.PN ---
Subjective Subjective Remarks POD 1 s/p PCP right hip doing well. pain controlled. resting comfortably Objective Vitals Vital Signs Date Time Temp Pulse Resp B/P (MAP) Pulse Ox O2 Delivery O2 Flow Rate FiO2 10/05/17 04:00 98.8 74 19 135/66 (89) 93 10/05/17 00:00 98.4 97 19 142/68 (92) 95 10/04/17 20:00 98.3 91 18 123/64 (83) 93 10/04/17 16:00 97.8 75 18 125/64 (84) 96 10/04/17 12:00 97.7 75 17 112/55 (74) 95 10/04/17 10:30 97.8 72 16 107/55 (72) 98 10/04/17 09:15 98.0 83 22 123/57 (79) 94 Nasal Cannula 3 10/04/17 09:00 86 22 129/59 (82) 93 Nasal Cannula 3 10/04/17 08:45 93 22 143/65 (91) 93 Nasal Cannula 3 10/04/17 08:30 92 22 135/64 (87) 94 Nasal Cannula 3 10/04/17 08:19 98.2 94 22 144/67 (92) 93 Nasal Cannula 3 I/O 10/04/17 10/04/17 10/04/17 10/05/17 10/05/17 10/05/17 07:00 15:00 23:00 07:00 15:00 23:00 Intake Total 360 ml 580 ml 360 ml Output Total 820 ml Balance 360 ml -240 ml 360 ml Intake Oral 360 ml 30 ml 360 ml IV Total 100 ml Other 450 ml Output Urine Total 800 ml Estimated Blood Loss 20 ml # Voids 3 2 4 # Bowel Movements 0 0 Result Diagram: 10/04/17 1648 10/04/17 1648 Imaging Last 24 hours Impressions Chest X-Ray 10/03/17 1332 Signed Impressions: Service Date/Time: Tuesday, October 03, 2017 14:32 - CONCLUSION: 1. Minimal basilar atelectasis. Julian Salguero MD Objective Remarks Bilateral upper extremities: Full range of motion neurovascularly intact Left lower extremity: Full range of motion and neurovascularly intact Right lower extremity: dressings clean and dry. intact. NVI Assessment & Plan Assessment and Plan 1) Right valgus impacted femoral neck fracture s/p perc pinning - POD 1 -TTWB -dailyi dressing changes POD 2 -CM for rehab placement -DVT prophylaxis -f/u with [facility] or [facility] in 2 weeks Doug Ross/[facility] AGARWAL Oct 05, 2017 06:30
[2017-10-05 07:09] LABS: HEMATOCRIT 34.2 % (35.0-46.0); HEMOGLOBIN 11.9 GM/DL (11.6-15.3)
[2017-10-05 08:00] VITALS: BP 154/67; PULSE 81; RESP 17; TEMP 99.7; O2SAT 93
[2017-10-05] MEDS: DOCUSATE SODIUM 50 MG/SENNA 8.6 MG TAB PO SCH (08:25)
[2017-10-05] MEDS: LISINOPRIL 5 MG TAB PO SCH (08:25)
[2017-10-05] MEDS: CHOLECALCIFEROL (VIT D3) 5000 UNIT CAP PO SCH (08:25)
[2017-10-05] MEDS: SODIUM CHLORIDE 0.9% FLUSH 10 ML FLUSH IV FLUSH SCH (08:26)
[2017-10-05] MEDS ORDERED: TIMOLOL MALEATE 0.5% OPHT SOLN 5 ML BTL EACH EYE SCH (09:00)
--- NOTE | 2017-10-05 10:54 | HHI.PR ---
Subjective Remarks Follow-up for right hip fracture No overnight events, pain 03/07, no nausea or vomiting, no chest pain or shortness of breath. Afebrile. Objective Vitals Vital Signs Date Time Temp Pulse Resp B/P (MAP) Pulse Ox O2 Delivery O2 Flow Rate FiO2 10/05/17 08:00 99.7 81 17 154/67 (96) 93 10/05/17 04:00 98.8 74 19 135/66 (89) 93 10/05/17 00:00 98.4 97 19 142/68 (92) 95 10/04/17 20:00 98.3 91 18 123/64 (83) 93 10/04/17 16:00 97.8 75 18 125/64 (84) 96 10/04/17 12:00 97.7 75 17 112/55 (74) 95 I/O 10/04/17 10/04/17 10/04/17 10/05/17 10/05/17 10/05/17 07:00 15:00 23:00 07:00 15:00 23:00 Intake Total 360 ml 580 ml 360 ml Output Total 820 ml Balance 360 ml -240 ml 360 ml Intake Oral 360 ml 30 ml 360 ml IV Total 100 ml Other 450 ml Output Urine Total 800 ml Estimated Blood Loss 20 ml # Voids 3 2 4 # Bowel Movements 0 0 Result Diagram: 10/05/17 0620 10/04/17 1648 Objective Remarks GENERAL: WN, WD elderly female laying comfortably in bed in NAD. SKIN: Warm and dry. HEENT: Pupils equal and round. MMM. NECK: Supple no tender LAD or JVD. HEART: RRR no m/r/g. LUNGS: CTAB without wheezes or crackles. ABDOMEN: Soft, NT, ND. EXTREMITIES: Dressing over R hip. Neurovascular intact. Mild right hip swelling and tenderness. NEURO: Awake and alert. PSYCH: Appropriate mood and affect. A/P Problem List: (1) Hypertension ICD Code: I10 - Essential (primary) hypertension Status: Chronic (2) Hypothyroidism ICD Code: E03.9 - Hypothyroidism, unspecified Status: Chronic (3) Hip fracture, right ICD Code: S72.001A - Fracture of unspecified part of neck of right femur, initial encounter for closed fracture Assessment and Plan 82 YOWF with history of hypothyroidism and HTN admitted on 10/03 for R hip fracture after a mechanical fall in [employer]. 1. R hip fracture - Ortho consulted - S/P R pinning POD#1, - Pain control - PT - Case management for SNF, TTWB, discharged to [facility]. Chronic medical problems not being acutely addressed: - HTN: Continue home Lisinopril, blood pressure elevated, likely secondary to pain. - Hypothyroidism: Continue home Levothyroxine - HLD: Continue home statin DVT prophylaxis: Lovenox per ortho Discussed with daughter., Discharged to [facility] once accepted. Problem Qualifiers (1) Hip fracture, right: Qualified Codes: S72.001A - Fracture of unspecified part of neck of right femur , initial encounter for closed fracture Teto Edwards MD Oct 05, 2017 10:54
--- NOTE | 2017-10-05 11:06 | HHI.DS ---
Discharge Summary Admission Date Oct 03, 2017 at 14:07 Discharge Date: Oct 05, 2017 Admitting Diagnosis Right Hip Fracture. (1) Hypertension ICD Code: I10 - Essential (primary) hypertension Status: Chronic (2) Hypothyroidism ICD Code: E03.9 - Hypothyroidism, unspecified Status: Chronic (3) Hip fracture, right ICD Code: S72.001A - Fracture of unspecified part of neck of right femur, initial encounter for closed fracture Procedures Right hip ORIF Brief History - From Admission Ms. Corbett is an 82 y/o female with a history of CVA, hypertension, arthritis , and hypothyroidism who presented to the emergency room in [place] on 2017 after a trip and fall at [employer] resulting in severe right hip and right groin pain. Right hip x-ray revealed nondisplaced fracture of right femoral neck and patient was transferred to [facility] for surgical repair. The patient is seen in her hospital room. She reports 7 out of 10 pain in her right hip following a mechanical fall at [employer]. She states that after the fall , she was unable to get back up. She denied hitting her head or having any chest pain or shortness of breath prior to the fall. She states she tripped on the carpet at the [employer]. She reports inadequate pain relief with current pain medication regimen. She denies any recent fever, chills, or illness. CBC/BMP: 10/05/17 0620 10/04/17 1648 Significant Findings Laboratory Tests Test 10/03/17 14:30 10/04/17 16:48 10/05/17 06:20 Neutrophils (%) (Auto) 78.3 % (16.0-70.0) 93.4 % (16.0-70.0) Neutrophils # (Auto) 8.4 TH/MM3 (1.8-7.7) 8.8 TH/MM3 (1.8-7.7) Activated Partial Thromboplast Time 22.6 SEC (24.3-30.1) Blood Urea Nitrogen 22 MG/DL (7-18) Chloride Level 108 MEQ/L (98-107) 111 MEQ/L (98-107) Estimat Glomerular Filtration Rate 74 ML/MIN (>89) 82 ML/MIN (>89) Lymphocytes (%) (Auto) 4.6 % (9.0-44.0) Lymphocytes # (Auto) 0.4 TH/MM3 (1.0-4.8) Neutrophils % (Manual) 96 % (16-70) Lymphocytes % 2 % (9-44) Neutrophils # (Manual) 9.2 TH/MM3 (1.8-7.7) Random Glucose 144 MG/DL (74-106) Calcium Level 7.9 MG/DL (8.5-10.1) 25-Hydroxy Vitamin D Total 29.7 ng/ML (30-100) Hematocrit 34.2 % (35.0-46.0) PE at Discharge GENERAL: WN, WD elderly female laying comfortably in bed in NAD. SKIN: Warm and dry. HEENT: Pupils equal and round. MMM. NECK: Supple no tender LAD or JVD. HEART: RRR no m/r/g. LUNGS: CTAB without wheezes or crackles. ABDOMEN: Soft, NT, ND. EXTREMITIES: Dressing over R hip. Neurovascular intact. Mild right hip swelling and tenderness. NEURO: Awake and alert. PSYCH: Appropriate mood and affect. Hospital Course 82 YOWF with history of hypothyroidism and HTN admitted on 10/03 for R hip fracture after a mechanical fall in [employer]. Status post ORIF after orthopedic consultation, patient's hospital course was unremarkable. Patient will be discharged to rehab on touch toe weightbearing. Mild elevation in blood pressure likely secondary to pain, no changes with antihypertensives. Patient was started on vitamin D for mild hypovitaminosis D. Pt Condition on Discharge: Good Discharge Disposition: Rehab Inpatient Discharge Time: > 30 minutes Discharge Instructions DIET: Follow Instructions for: Heart Healthy Diet Activities you can perform: Toe Touch Weight Bearing Follow up Referrals: Orthopedics - 2 Weeks @ [facility] with Carlyle Gonsalez MD New Medications: Calcium Carbonate-Vitamin D (Calcium 600+D 200) 600-200 Mg-Unit Tab 1 TAB PO BID for Nutritional Supplement, #90 TAB 0 Refills Ergocalciferol (Ergocalciferol) 50,000 Unit Cap 69163 UNITS PO Q7D for Nutritional Supplement, #8 CAP Oxycodone (Oxycodone) 10 Mg Tab 10 MG PO Q4H PRN for PAIN, #40 TAB 0 Refills Rivaroxaban (Xarelto) 10 Mg Tab 10 MG PO DAILY for Blood Clot Prevention, #14 TAB 0 Refills Walker/Adult/Folding (Walker/Adult/Folding) 1 Mis Mis EA .XX DIRECTED, #1 0 Refills Sennosides (Senna-Lax) 8.6 Mg Tab 17.2 MG PO Q12H PRN for Moderate constipation for 30 Days, #120 TAB Continued Medications: Atorvastatin (Lipitor) 10 Mg Tab 10 MG PO HS for Cholesterol Management, #30 TAB 0 Refills Levothyroxine (Levothyroxine) 112 Mcg Tab 112 MCG PO DAILY for Thyroid, #30 TAB 0 Refills Lisinopril (Lisinopril) 5 Mg Tab 5 MG PO DAILY for Blood Pressure Management, #30 TAB 0 Refills Lutein (Lutein) 20 Mg Cap 20 MG PO DAILY for Nutritional Supplement, CAP 0 Refills Timolol Opth Drops (Timolol Opth Drops) 0.5 % Soln 1 DROP EACH EYE DAILY for Glaucoma, #1 BOTTLE 0 Refills Discontinued Medications: Cholecalciferol (Vitamin D-400) 400 Unit Tab 400 UNITS PO DAILY for Nutritional Supplement, #1 BOTTLE 0 Refills Oxycodone (Oxycodone) 5 Mg Tab 5 MG PO Q6HR for Pain Management, TAB 0 Refills Teto Edwards MD Oct 05, 2017 11:06
[2017-10-05] MEDS ORDERED: SENN187 PO (11:07)
[2017-10-05 12:00] VITALS: BP 136/66; PULSE 93; RESP 17; TEMP 99.9; O2SAT 92
[2017-10-13] MEDS ORDERED: COMMODE 3-IN-11 MIS (15:06)
== END 2017-10-05 16:48 | DRG 482 ==
LOC: PHED 12:00 → PHEDA 14:07 → N06A 20:11
PROVIDERS: ADMIT Hospitalist; ATTEND Hospitalist
PROC: 0QH604Z Insertion of Internal Fixation Device into Right Upper Femur, Open Approach (ICD-10-PCS; principal; 2017-10-04 07:17)
DX: S72.001A Fracture of unspecified part of neck of right femur, initial encounter for closed fracture (principal); W01.0XXA Fall on same level from slipping, tripping and stumbling without subsequent striking against object, initial encounter; Y92.22 Religious institution as the place of occurrence of the external cause; I10 Essential (primary) hypertension; M19.90 Unspecified osteoarthritis, unspecified site; Z86.73 Personal history of transient ischemic attack (TIA), and cerebral infarction without residual deficits; E03.9 Hypothyroidism, unspecified; G89.29 Other chronic pain; M54.5 Low back pain; F17.210 Nicotine dependence, cigarettes, uncomplicated; E55.9 Vitamin D deficiency, unspecified; E78.5 Hyperlipidemia, unspecified; Z85.828 Personal history of other malignant neoplasm of skin
CPT/HCPCS: 71045; 73502; 76000; 80048; 80053; 82306; 83735; 85007; 85014; 85018; 85025; 85027; 85610; 85730; 86850; 86900; 86901; 93005; C1713; J0131; J0690; J1100; J1580; J1650; J2270; J2370; J2405; J3010; J3370; J7030; J7050